=== PATIENT | male | born 1965 | race Caucasian/White ===

== ENCOUNTER → 2016-10-04 | Outpatient (CLI) | payer BC ==
[~2016-10-04] MED LIST: ALLEGRA 180MG180 MG PO; ALPARAZOLAM0.5 MG PO; BENADRYL25 MG PO; CARDI-OMEGA1000 MG PO; CELEXA 20MG20 MG/TA1 PO; CIPRO 500MG TA500 MG PO; CLONAZEPAM1 MG PO; ED FLEXERI6 TAB/BOTT PO; FLOMAX PO; GOOD NEIGHBOR M25 M1 PO; GOOD NEIGHBOR P20 M1 PO; KETOROLAC TROME10 MG PO; MULTI VITAMINS1 TAB PO; MULTIVITAMIN1 SGL PO; OMEGA-3100 MG PO; PERCOCET 325 MG1 TA2 PO; PRILOSEC 20MG20 MG PO; RESTORIL15 MG PO; TESSALON P100 MG/CAP PO; XANAX 0.5MG0.5 MG PO; ZYRTEC ALLERGY10 MG PO; ZYRTEC10 MG PO
[2016-10-04 14:35] VITALS: BP 141/99
[2016-10-04 15:53] VITALS: BP 114/69
== END ==
LOC: AMSURD 14:11
DX: G43.009 Migraine without aura, not intractable, without status migrainosus (principal)
CPT/HCPCS: J1100; J2765; J7030

== ENCOUNTER → 2017-12-18 | Outpatient (CLI) | payer BC ==
[2016-10-04 15:53] VITALS: BP 114/69
[2017-12-18 07:44] LABS: EOS # 0.1 (0.04-0.40); HEMATOCRIT 40.8 % (42.0-52.0); HEMOGLOBIN 14.1 g/dL (13.5-18.0); LYMPH# 2.1 (1.50-4.00); MEAN CELL VOLUME 90 fl (78-100); MEAN CORPUSCULAR HEMOGLOBIN 31 pg (27-31); MEAN CORPUSCULAR HGB CONC 35 g/dL (33-37); MEAN PLATELET VOLUME 10.5 fl (7.4-10.4); MONO # 0.5 (0.20-0.80); NEU # 3.8 (1.40-6.50); PLATELET COUNT 193 K/mm3 (130-400); RED BLOOD COUNT 4.52 M/mm3 (4.20-5.60); RED CELL DISTRIBUTION WIDTH 12.8 % (11.5-14.5); WHITE BLOOD COUNT 6.6 K/mm3 (4.8-10.8)
[2017-12-18 08:14] LABS: ALBUMIN 4.1 g/dL (3.5-5.0); BUN/CREATININE RATIO 24.2 (6.0-26.0); CALCIUM 9.1 mg/dL (8.4-10.2); POTASSIUM 4.2 mmol/L (3.6-5.0); TOTAL BILIRUBIN 0.3 mg/dL (0.2-1.3); TOTAL PROTEIN 7.2 g/dL (6.3-8.2)
[2017-12-19 00:08] LABS: TESTOSTERONE 481 ng/dL (221-716)
== END ==
LOC: LAB 07:25
PROVIDERS: Nurse Practitioner Family
DX: Z00.00 Encounter for general adult medical examination without abnormal findings (principal); E78.2 Mixed hyperlipidemia; R53.81 Other malaise; K21.9 Gastro-esophageal reflux disease without esophagitis; F41.1 Generalized anxiety disorder; Z12.5 Encounter for screening for malignant neoplasm of prostate; R73.01 Impaired fasting glucose

== ENCOUNTER → 2017-12-25 | Outpatient (CLI) | payer BC ==
[2016-10-04 15:53] VITALS: BP 114/69
[2017-12-26 00:06] LABS: TESTOSTERONE 619 ng/dL (221-716)
[2017-12-26 01:27] LABS: T3 TOTAL 111 ng/dL (87-178)
== END ==
LOC: LAB 07:52
PROVIDERS: Nurse Practitioner Family
DX: Z00.00 Encounter for general adult medical examination without abnormal findings (principal); R53.81 Other malaise; Z88.1 Allergy status to other antibiotic agents

== ENCOUNTER 2018-09-19 16:09 | Emergency (ER) | payer BC ==
[~2018-09-19] VITALS: Ht 175.3 cm; Wt 91.8 kg
[2018-09-19 17:01] LABS: EOS % 0.2 % (0.0-4.0); HEMATOCRIT 43.6 % (42.0-52.0); HEMOGLOBIN 15.1 g/dL (13.5-18.0); MEAN CELL VOLUME 91 fl (78-100); MEAN CORPUSCULAR HEMOGLOBIN 31 pg (27-31); MEAN CORPUSCULAR HGB CONC 35 g/dL (33-37); MONO # 1.3 (0.20-0.80); PLATELET COUNT 197 K/mm3 (130-400); RED BLOOD COUNT 4.82 M/mm3 (4.20-5.60); RED CELL DISTRIBUTION WIDTH 13.4 % (11.5-14.5); WHITE BLOOD COUNT 16.2 K/mm3 (4.8-10.8)
[2018-09-19 17:02] LABS: NEU # 12.9 (1.40-6.50)
[2018-09-19] MEDS ORDERED: PRAMIPEXOLE0.125 MG PO (17:05)
[2018-09-19] MEDS ORDERED: VITAMIN D50000 I2 PO (17:06)
[2018-09-19] MEDS ORDERED: VITAMIN D1000 IU PO (17:06)
[2018-09-19 17:22] LABS: ALBUMIN 4.7 g/dL (3.5-5.0); CALCIUM 9.7 mg/dL (8.4-10.2); POTASSIUM 4.1 mmol/L (3.6-5.0); TOTAL BILIRUBIN 0.9 mg/dL (0.2-1.3); TOTAL PROTEIN 8.2 g/dL (6.3-8.2)
[2018-09-19 17:50] VITALS: BP 126/85
== END 2018-09-19 17:32 | disposition short-term general hospital (02) ==
LOC: ED 16:09
PROVIDERS: Physician Assistant
DX: K35.80 Unspecified acute appendicitis (principal); Z87.442 Personal history of urinary calculi; F32.9 Major depressive disorder, single episode, unspecified; F41.9 Anxiety disorder, unspecified
CPT/HCPCS: J2405; J3010; J7030; Q9967

== ENCOUNTER → 2019-07-12 | Outpatient (CLI) | payer BC ==
[~2019-07-12] MED LIST changes: +PRAMIPEXOLE0.125 MG PO; +VITAMIN D1000 IU PO; +VITAMIN D50000 I2 PO
[2019-07-12 07:30] LABS: EOS # 0.2 (0.04-0.40); HEMATOCRIT 42.3 % (42.0-52.0); HEMOGLOBIN 14.3 g/dL (13.5-18.0); LYMPH# 2.5 (1.50-4.00); MEAN CELL VOLUME 92 fl (78-100); MEAN CORPUSCULAR HEMOGLOBIN 31 pg (27-31); MEAN CORPUSCULAR HGB CONC 34 g/dL (33-37); MEAN PLATELET VOLUME 10.5 fl (7.4-10.4); MONO # 0.5 (0.20-0.80); NEU # 3.7 (1.40-6.50); PLATELET COUNT 196 K/mm3 (130-400); RED BLOOD COUNT 4.61 M/mm3 (4.20-5.60); RED CELL DISTRIBUTION WIDTH 13.6 % (11.5-14.5)
[2019-07-12 07:37] LABS: ALBUMIN 4.3 g/dL (3.5-5.0); POTASSIUM 4.3 mmol/L (3.5-5.1)
[2019-07-12 07:38] LABS: CALCIUM 9.7 mg/dL (8.3-10.5)
[2019-07-12 07:39] LABS: TOTAL PROTEIN 7.1 g/dL (6.4-8.3)
[2019-07-12 07:41] LABS: TOTAL BILIRUBIN 0.4 mg/dL (0.2-1.2)
== END ==
LOC: LAB 07:10
PROVIDERS: Physician Assistant
DX: Z00.00 Encounter for general adult medical examination without abnormal findings (principal); Z12.5 Encounter for screening for malignant neoplasm of prostate; M54.5 Low back pain; F41.1 Generalized anxiety disorder; E78.5 Hyperlipidemia, unspecified; R73.01 Impaired fasting glucose; G25.81 Restless legs syndrome; E55.9 Vitamin D deficiency, unspecified

== ENCOUNTER 2019-08-21 08:00 | Outpatient (RCR) | payer BC | END 2019-08-21 08:30 | disposition still patient (30) | LOC: PT 08:00 | DX: M54.5 Low back pain (principal) ==

== ENCOUNTER → 2020-03-23 | Outpatient (CLI) | payer BC | LOC: LAB 13:56 | DX: R05 Cough (principal); R53.83 Other fatigue; J02.9 Acute pharyngitis, unspecified; Z20.828 Contact with and (suspected) exposure to other viral communicable diseases ==

== ENCOUNTER → 2020-03-27 | Outpatient (CLI) | payer BC ==
[2020-03-27 17:01] LABS: EOS # 0.1 (0.04-0.40); EOS % 1.2 % (0.0-4.0); HEMATOCRIT 43.4 % (42.0-52.0); HEMOGLOBIN 14.6 g/dL (13.5-18.0); LYMPH# 2.9 (1.50-4.00); MEAN CELL VOLUME 92 fl (78-100); MEAN CORPUSCULAR HEMOGLOBIN 31 pg (27-31); MEAN CORPUSCULAR HGB CONC 34 g/dL (33-37); MEAN PLATELET VOLUME 10.5 fl (7.4-10.4); MONO # 0.7 (0.20-0.80); NEU # 6.6 (1.40-6.50); PLATELET COUNT 176 K/mm3 (130-400); RED CELL DISTRIBUTION WIDTH 13.2 % (11.5-14.5); WHITE BLOOD COUNT 10.3 K/mm3 (4.8-10.8)
[2020-03-27 17:12] LABS: ALBUMIN 4.5 g/dL (3.5-5.0)
[2020-03-27 17:13] LABS: CALCIUM 9.6 mg/dL (8.3-10.5)
[2020-03-27 17:14] LABS: TOTAL PROTEIN 7.9 g/dL (6.4-8.3)
[2020-03-27 17:16] LABS: TOTAL BILIRUBIN 0.4 mg/dL (0.2-1.2)
== END ==
LOC: LAB 16:48
PROVIDERS: Physician Assistant
DX: Z20.828 Contact with and (suspected) exposure to other viral communicable diseases (principal)

== ENCOUNTER → 2020-09-14 | Outpatient (CLI) | payer BC | LOC: LAB 09:59 | DX: U07.1 COVID-19 (principal) ==

== ENCOUNTER → 2020-10-08 | Outpatient (CLI) | payer BC ==
[2020-10-08 14:38] LABS: EOS # 0.1 (0.04-0.40); EOS % 1.7 % (0.0-4.0); HEMOGLOBIN 12.6 g/dL (13.5-18.0); LYMPH# 2.2 (1.50-4.00); MEAN CELL VOLUME 94 fl (78-100); MEAN CORPUSCULAR HEMOGLOBIN 30 pg (27-31); MEAN CORPUSCULAR HGB CONC 32 g/dL (33-37); MONO # 0.5 (0.20-0.80); NEU # 4.6 (1.40-6.50); PLATELET COUNT 208 K/mm3 (130-400); RED BLOOD COUNT 4.16 M/mm3 (4.20-5.60); RED CELL DISTRIBUTION WIDTH 13.1 % (11.5-14.5); WHITE BLOOD COUNT 7.5 K/mm3 (4.8-10.8)
[2020-10-08 14:55] LABS: ALBUMIN 3.9 g/dL (3.5-5.0)
[2020-10-08 14:56] LABS: POTASSIUM 4.6 mmol/L (3.5-5.1)
[2020-10-08 14:57] LABS: CALCIUM 9.4 mg/dL (8.3-10.5)
[2020-10-08 14:58] LABS: TOTAL PROTEIN 6.8 g/dL (6.4-8.3)
[2020-10-08 15:00] LABS: TOTAL BILIRUBIN 0.5 mg/dL (0.2-1.2)
== END ==
LOC: RAD 14:25
PROVIDERS: Physician Assistant
DX: J98.4 Other disorders of lung (principal); R53.83 Other fatigue; R10.9 Unspecified abdominal pain; E55.9 Vitamin D deficiency, unspecified

== ENCOUNTER 2020-10-15 14:47 | Emergency (ER) | payer BC ==
[2020-10-15 15:30] LABS: EOS # 0.3 (0.04-0.40); EOS % 4.3 % (0.0-4.0); HEMATOCRIT 39.4 % (42.0-52.0); HEMOGLOBIN 13.2 g/dL (13.5-18.0); LYMPH# 2.5 (1.50-4.00); MEAN CELL VOLUME 92 fl (78-100); MEAN CORPUSCULAR HEMOGLOBIN 31 pg (27-31); MEAN CORPUSCULAR HGB CONC 34 g/dL (33-37); MONO # 0.5 (0.20-0.80); PLATELET COUNT 225 K/mm3 (130-400); RED BLOOD COUNT 4.28 M/mm3 (4.20-5.60); RED CELL DISTRIBUTION WIDTH 13.5 % (11.5-14.5); WHITE BLOOD COUNT 7.3 K/mm3 (4.8-10.8)
[2020-10-15 15:45] LABS: ALBUMIN 4.2 g/dL (3.5-5.0)
[2020-10-15 15:46] LABS: POTASSIUM 4.1 mmol/L (3.5-5.1); SODIUM 141 mmol/L (136-145)
[2020-10-15 15:47] LABS: CALCIUM 9.7 mg/dL (8.3-10.5)
[2020-10-15 15:48] LABS: GLUCOSE 103 mg/dL (75-110); TOTAL PROTEIN 7.5 g/dL (6.4-8.3)
[2020-10-15 15:49] LABS: CARBON DIOXIDE 27 mmol/L (22-29)
[2020-10-15 15:50] LABS: TOTAL BILIRUBIN 0.4 mg/dL (0.2-1.2)
[2020-10-15 15:53] LABS: AST-SGOT 34 U/L (5-34)
[2020-10-15 15:54] LABS: ALT/SGPT 66 U/L (0-55)
[2020-10-15 15:55] LABS: LIPASE 10 U/L (8-78)
[2020-10-15 16:01] LABS: TROPONIN-I < 0.03 ng/mL (<0.030)
[2020-10-15] MEDS ORDERED: PROTONIX TR40 M1 PO (17:29)
[2020-10-15] MEDS ORDERED: CARAFATE 1GM1 G PO (17:29)
[2020-10-15 17:58] VITALS: BP 126/78
== END 2020-10-15 17:51 | disposition home or self-care (01) ==
LOC: ED 14:47
PROVIDERS: Nurse Practitioner Family
DX: R10.13 Epigastric pain (principal); E55.9 Vitamin D deficiency, unspecified; K21.9 Gastro-esophageal reflux disease without esophagitis
CPT/HCPCS: C9113; J3490; J7030; Q9967

== ENCOUNTER 2020-10-19 17:00 | Emergency (ER) | payer BC ==
[~2020-10-19 17:00] MED LIST changes: +CARAFATE 1GM1 G PO; +PROTONIX TR40 M1 PO
[2020-10-19 17:31] LABS: EOS # 0.2 (0.04-0.40); EOS % 3.1 % (0.0-4.0); HEMATOCRIT 36.3 % (42.0-52.0); HEMOGLOBIN 11.9 g/dL (13.5-18.0); LYMPH# 2.5 (1.50-4.00); MEAN CELL VOLUME 93 fl (78-100); MEAN CORPUSCULAR HEMOGLOBIN 31 pg (27-31); MEAN CORPUSCULAR HGB CONC 33 g/dL (33-37); MEAN PLATELET VOLUME 9.7 fl (7.4-10.4); MONO # 0.6 (0.20-0.80); NEU # 4.3 (1.40-6.50); PLATELET COUNT 239 K/mm3 (130-400); RED BLOOD COUNT 3.89 M/mm3 (4.20-5.60); RED CELL DISTRIBUTION WIDTH 13.3 % (11.5-14.5); WHITE BLOOD COUNT 7.7 K/mm3 (4.8-10.8)
[2020-10-19 17:43] LABS: SODIUM 142 mmol/L (136-145)
[2020-10-19 17:44] LABS: CALCIUM 9.2 mg/dL (8.3-10.5)
[2020-10-19 17:45] LABS: GLUCOSE 89 mg/dL (75-110); TOTAL PROTEIN 7.1 g/dL (6.4-8.3)
[2020-10-19 17:46] LABS: CARBON DIOXIDE 27 mmol/L (22-29)
[2020-10-19 17:47] LABS: D-DIMER 0.86 mg/L FEU (0.15-0.50); TOTAL BILIRUBIN 0.2 mg/dL (0.2-1.2)
[2020-10-19 17:50] LABS: AST-SGOT 22 U/L (5-34)
[2020-10-19 17:51] LABS: ALT/SGPT 43 U/L (0-55)
[2020-10-19 17:58] LABS: TROPONIN-I < 0.03 ng/mL (<0.030)
[2020-10-19 21:56] VITALS: BP 130/83
== END 2020-10-19 21:56 | disposition home or self-care (01) ==
LOC: ED 17:00
PROVIDERS: Physician Assistant
DX: R07.89 Other chest pain (principal); B94.8 Sequelae of other specified infectious and parasitic diseases; K21.9 Gastro-esophageal reflux disease without esophagitis; Z90.89 Acquired absence of other organs; Z82.49 Family history of ischemic heart disease and other diseases of the circulatory system; Z88.1 Allergy status to other antibiotic agents; Z79.899 Other long term (current) drug therapy
CPT/HCPCS: J1885; Q9967

== ENCOUNTER → 2021-02-05 | Outpatient (CLI) | payer BC | LOC: RAD 15:21 | DX: M47.812 Spondylosis without myelopathy or radiculopathy, cervical region (principal); M50.322 Other cervical disc degeneration at C5-C6 level; M50.323 Other cervical disc degeneration at C6-C7 level ==

== ENCOUNTER → 2021-03-17 | Outpatient (CLI) | payer BC | LOC: VAS 08:56 → RAD 09:00 | DX: R53.83 Other fatigue (principal); Z86.16 Personal history of COVID-19 ==

== ENCOUNTER → 2021-08-11 | Outpatient (CLI) | payer BC | LOC: LAB 08:54 | DX: Z20.822 Contact with and (suspected) exposure to COVID-19 (principal) ==

== ENCOUNTER → 2021-08-25 | Outpatient (CLI) | payer BC ==
[2021-08-25 08:19] LABS: BASO # 0.02 K/mm3 (0.02-0.10); EOS # 0.16 K/mm3 (0.04-0.40); EOS % 2.3 % (0.0-4.0); HEMATOCRIT 41.6 % (42.0-52.0); LYMPH# 2.16 K/mm3 (1.50-4.00); MEAN CELL VOLUME 94 fl (78-100); MEAN CORPUSCULAR HEMOGLOBIN 32 pg (27-31); MEAN CORPUSCULAR HGB CONC 34 g/dL (33-37); MEAN PLATELET VOLUME 10.3 fl (7.4-10.4); MONO # 0.41 K/mm3 (0.20-0.80); NEU # 4.13 K/mm3 (1.40-6.50); PLATELET COUNT 171 K/mm3 (130-400); RED BLOOD COUNT 4.43 M/mm3 (4.20-5.60); RED CELL DISTRIBUTION WIDTH 12.5 % (11.5-14.5); WHITE BLOOD COUNT 6.9 K/mm3 (4.8-10.8)
[2021-08-25 08:27] LABS: ALBUMIN 4.6 g/dL (3.5-5.0); POTASSIUM 4.4 mmol/L (3.5-5.1)
[2021-08-25 08:29] LABS: CALCIUM 9.7 mg/dL (8.3-10.5)
[2021-08-25 08:30] LABS: TOTAL PROTEIN 7.3 g/dL (6.4-8.3)
[2021-08-25 08:32] LABS: TOTAL BILIRUBIN 0.7 mg/dL (0.2-1.2)
[2021-08-25 08:36] LABS: MAGNESIUM 1.76 mg/dL (1.60-2.60)
[2021-08-26 11:20] LABS: ANA SCREEN with REFLEX Negative (Negative)
== END ==
LOC: LAB 08:02
PROVIDERS: Physician Assistant
DX: G44.89 Other headache syndrome (principal); K90.9 Intestinal malabsorption, unspecified; E78.5 Hyperlipidemia, unspecified; M25.50 Pain in unspecified joint

== ENCOUNTER → 2022-05-25 | Outpatient (CLI) | payer BC ==
[2022-05-25 10:10] LABS: BASO # 0.02 K/mm3 (0.02-0.10); EOS # 0.13 K/mm3 (0.04-0.40); EOS % 2.3 % (0.0-4.0); HEMOGLOBIN 13.1 g/dL (13.5-18.0); LYMPH# 1.45 K/mm3 (1.50-4.00); MEAN CELL VOLUME 91 fl (78-100); MEAN CORPUSCULAR HEMOGLOBIN 32 pg (27-31); MEAN CORPUSCULAR HGB CONC 35 g/dL (33-37); MEAN PLATELET VOLUME 10.2 fl (7.4-10.4); MONO # 0.53 K/mm3 (0.20-0.80); NEU # 3.45 K/mm3 (1.40-6.50); PLATELET COUNT 185 K/mm3 (130-400); RED BLOOD COUNT 4.16 M/mm3 (4.20-5.60); RED CELL DISTRIBUTION WIDTH 13.3 % (11.5-14.5); WHITE BLOOD COUNT 5.6 K/mm3 (4.8-10.8)
[2022-05-25 11:17] LABS: POTASSIUM 3.7 mmol/L (3.5-5.1)
[2022-05-25 11:18] LABS: ALBUMIN 4.1 g/dL (3.5-5.0)
[2022-05-25 11:20] LABS: TOTAL PROTEIN 6.7 g/dL (6.4-8.3)
[2022-05-25 11:22] LABS: TOTAL BILIRUBIN 0.5 mg/dL (0.2-1.2)
[2022-05-25 11:26] LABS: MAGNESIUM 1.93 mg/dL (1.60-2.60)
== END ==
LOC: LAB 09:34
PROVIDERS: Physician Assistant
DX: Z00.00 Encounter for general adult medical examination without abnormal findings (principal); Z12.5 Encounter for screening for malignant neoplasm of prostate; U07.1 COVID-19; E78.5 Hyperlipidemia, unspecified; T78.40XS Allergy, unspecified, sequela; F41.9 Anxiety disorder, unspecified; M54.50 Low back pain, unspecified; K21.9 Gastro-esophageal reflux disease without esophagitis; G25.81 Restless legs syndrome; E55.9 Vitamin D deficiency, unspecified; R07.9 Chest pain, unspecified; K90.9 Intestinal malabsorption, unspecified; R51.9 Headache, unspecified; Z13.29 Encounter for screening for other suspected endocrine disorder; Z13.1 Encounter for screening for diabetes mellitus

== ENCOUNTER → 2023-05-31 | Outpatient (CLI) | payer BC ==
[2023-05-31 09:03] LABS: BASO # 0.01 K/mm3 (0.02-0.10); EOS % 3.6 % (0.0-4.0); HEMATOCRIT 40.5 % (42.0-52.0); HEMOGLOBIN 13.7 g/dL (13.5-18.0); LYMPH# 1.97 K/mm3 (1.50-4.00); MEAN CELL VOLUME 93 fl (78-100); MEAN CORPUSCULAR HEMOGLOBIN 31 pg (27-31); MEAN CORPUSCULAR HGB CONC 34 g/dL (33-37); MEAN PLATELET VOLUME 10.8 fl (7.4-10.4); MONO # 0.37 K/mm3 (0.20-0.80); NEU # 2.97 K/mm3 (1.40-6.50); PLATELET COUNT 191 K/mm3 (130-400); RED BLOOD COUNT 4.38 M/mm3 (4.20-5.60); RED CELL DISTRIBUTION WIDTH 12.8 % (11.5-14.5); WHITE BLOOD COUNT 5.5 K/mm3 (4.8-10.8)
[2023-05-31 09:10] LABS: ALBUMIN 4.3 g/dL (3.5-5.0); POTASSIUM 4.5 mmol/L (3.5-5.1)
[2023-05-31 09:11] LABS: CALCIUM 9.9 mg/dL (8.3-10.5)
[2023-05-31 09:13] LABS: TOTAL PROTEIN 6.8 g/dL (6.4-8.3)
[2023-05-31 09:15] LABS: TOTAL BILIRUBIN 0.3 mg/dL (0.2-1.2)
[2023-05-31 09:20] LABS: MAGNESIUM 1.9 mg/dL (1.60-2.60)
== END ==
LOC: LAB 08:47
PROVIDERS: Physician Assistant
DX: Z00.00 Encounter for general adult medical examination without abnormal findings (principal); Z13.29 Encounter for screening for other suspected endocrine disorder; Z12.5 Encounter for screening for malignant neoplasm of prostate; M16.0 Bilateral primary osteoarthritis of hip; I10 Essential (primary) hypertension; F41.9 Anxiety disorder, unspecified; T78.40XS Allergy, unspecified, sequela; M54.50 Low back pain, unspecified; G89.29 Other chronic pain; K21.9 Gastro-esophageal reflux disease without esophagitis; E55.9 Vitamin D deficiency, unspecified; G25.81 Restless legs syndrome; K90.9 Intestinal malabsorption, unspecified; E78.5 Hyperlipidemia, unspecified; R53.83 Other fatigue; R73.01 Impaired fasting glucose; Z86.16 Personal history of COVID-19

== ENCOUNTER → 2023-10-27 | Outpatient (CLI) | payer BC | LOC: LAB 09:05 | DX: R97.20 Elevated prostate specific antigen [PSA] (principal) ==

== ENCOUNTER → 2024-08-09 | Outpatient (CLI) | payer BC ==
[2024-08-09 12:54] LABS: BASO # 0.02 K/mm3 (0.02-0.10); EOS # 0.16 K/mm3 (0.04-0.40); HEMATOCRIT 40.7 % (42.0-52.0); HEMOGLOBIN 13.9 g/dL (13.5-18.0); LYMPH# 2.47 K/mm3 (1.50-4.00); MEAN CELL VOLUME 91 fl (78-100); MEAN CORPUSCULAR HEMOGLOBIN 31 pg (27-31); MEAN CORPUSCULAR HGB CONC 34 g/dL (33-37); MEAN PLATELET VOLUME 10.5 fl (7.4-10.4); NEU # 4.85 K/mm3 (1.40-6.50); PLATELET COUNT 195 K/mm3 (130-400); RED BLOOD COUNT 4.47 M/mm3 (4.20-5.60)
[2024-08-09 12:59] LABS: ALBUMIN 4.4 g/dL (3.5-5.0)
[2024-08-09 13:01] LABS: CALCIUM 9.7 mg/dL (8.3-10.5)
[2024-08-09 13:02] LABS: TOTAL PROTEIN 7.1 g/dL (6.4-8.3)
[2024-08-09 13:04] LABS: TOTAL BILIRUBIN 0.5 mg/dL (0.2-1.2)
== END ==
LOC: LAB 12:40
PROVIDERS: Physician Assistant
DX: Z12.5 Encounter for screening for malignant neoplasm of prostate (principal); Z13.29 Encounter for screening for other suspected endocrine disorder; I10 Essential (primary) hypertension; E78.5 Hyperlipidemia, unspecified; R73.01 Impaired fasting glucose; K90.9 Intestinal malabsorption, unspecified